=== PATIENT | female | born 1965 | race Caucasian/White ===

== ENCOUNTER 2019-09-28 10:45 | Emergency (ER) | payer OTHER, SELFPAY ==
[2019-09-28 11:03] VITALS: BP 125/69; PULSE 87; RESP 20; TEMP 37.5; O2SAT 98
--- NOTE | 2019-09-28 11:28 | ED.URI ---
HPI - URI/Sore Throat General Chief Complaint: Upper Respiratory Infection Stated Complaint: cough/running nose Time Seen by Provider: 09/28/19 11:29 Source: patient and RN notes reviewed Mode of arrival: ambulatory Limitations: no limitations History of Present Illness HPI Narrative: Pt is a 54 y/o female who is a non-smoker/non-drinker that presents to the with c/o a cough that started 2 days ago. She reports wheezing, sinus drainage, congestion, and a subjective fever. Pt denies any recent foreign or domestic travel. Pt has been using her inhaler at home. 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 MD elicited complaint: cough Onset (ago): day(s) (2) Context: sick contacts Associated symptoms: fever (subjective), nasal congestion and other (sinus drainage, wheezing) Related Data Allergies Allergy/AdvReac Type Severity Reaction Status Date / Time prednisone Allergy Unknown Hyperactive Verified 09/28/19 11:02 tramadol Allergy Unknown chest pain Verified 09/28/19 11:02 Review of Systems Review of Systems: Narrative: General/Constitutional: No weight loss. Reports subjective fever Eyes: N0: Redness,discharge Ears/Nose/Throat: No: Epistaxis,ear discharge. Reports sinus drainage, congestion. Respiratory: Denies: Hemoptysis. Reports cough and wheezing Gastrointestinal: No Vomiting, Bleeding-rectal PMFSH Past Medical History Medical History Asthma Thomas's thyroiditis Hyperlipidemia Prediabetes Sleep apnea Surgical History Surgical History (Updated 09/28/19 @ 11:58 by Roc Palencia) No significant past surgical history Social History Social History Smoking status: Never smoker Smoking end date: 07/15/02 Alcohol intake: current Comments At time of signature, agree with nursing past medical, surgical, social and family history. There is no relevant family history pertinent to the presenting complaint Exam Narrative: Exam Narrative: General: Obese/ Well nourished EYE: PERRLA, Conjunctiva clear Ears: Auditory canal normal, TM normal Nose: Rhinorrhea, Mucousal erythema Mouth/Throat: MM moist, Uvula midline, Pharyngeal erythema Neck: Supple, No adenopathy Respiratory: No respiratory distress, Breath sounds equal, Clear to auscultatio Cardiovascular: RRR, No JVD Musculoskeletal: Non tender, Normal strength Skin: Warm, Dry Neurological: A&O x3, CN II-XII intact Psychiatric: Normal mood, Normal affect Course Vital Signs Vital signs: Vital Signs Temperature 99.5 F 09/28/19 11:03 Pulse Rate 87 09/28/19 11:03 Respiratory Rate 20 09/28/19 11:03 Blood Pressure 125/69 09/28/19 11:03 Pulse Oximetry 98 09/28/19 11:03 Temperature 99.5 F 09/28/19 11:03 Pulse Rate 87 09/28/19 11:03 Respiratory Rate 20 09/28/19 11:03 Blood Pressure 125/69 09/28/19 11:03 Pulse Oximetry 98 09/28/19 11:03 MDM - URI/Sore Throat Lab Data Labs: Influenza A Screen Positive Reference Range: Negative Influenza B Screen Negative Reference Range: Negative Discharge Plan Discharge Clinical Impression: Influenza A Patient Disposition: Home, Self-Care Condition: Stable Instructions: Influenza (ED) Prescriptions: New benzonatate [Tessalon Perles] 100 mg capsule 100 mg PO TID Qty: 20 RF: 1 codeine-guaifenesin 10-100 mg/5 mL liquid 7.5 ml PO Q6H PRN (Reason: cough) Qty: 118 RF: 0 oseltamivir [Tamiflu] 75 mg capsule 75 mg PO Q12H 5 Days Qty: 10 RF: 0 No Action meloxicam 7.5 mg tablet 7.5 mg PO .q12hr PRN (Reason: pain) Qty: 180 RF: 0 Interventions: Discharge Disposition Last Done: 09/28/19 11:54 Follow-up/Referrals: Lucrecia Jarrett DO [Primary Care Provider] - Stand Alone Forms: Work/School Release IP Discharge Date/Time: 09/28/19 11:50
== END 2019-09-28 11:50 | disposition home or self-care (01) ==
PROVIDERS: Emergency Provider Emergency Medicine; PCP Family Medicine
DX: J10.1 Influenza due to other identified influenza virus with other respiratory manifestations (principal); J45.909 Unspecified asthma, uncomplicated; E06.3 Autoimmune thyroiditis; E78.5 Hyperlipidemia, unspecified; G47.30 Sleep apnea, unspecified; R73.03 Prediabetes
CPT/HCPCS: 87804; 99213; G0463

== ENCOUNTER 2020-04-23 07:05 | Outpatient (CLI) | payer OTHER, SELFPAY ==
[2020-04-23 08:02] LABS: Basophils Absolute Auto 0.1 K/mm3 (0.0-0.1); Basophils Percent Auto 0.6 % (0.2-1.2); Eosinophils Absolute Auto 0.5 K/mm3 (0-0.3); Hematocrit 39.6 % (37.0-47.0); Hemoglobin 12.9 g/dL (12.0-15.0); Immature Granulocyte Absolute 0.05 K/mm3 (0.00-0.031); Immature Granulocyte Percent A 0.6 % (0-0.5); Lymphocytes Absolute Auto 2.63 K/mm3 (0.9-3.2); Lymphocytes Percent Auto 29.9 % (18.3-44.2); Mean Corpuscular HGB Conc 32.6 g/dl (32-36); Mean Corpuscular Hemoglobin 28.5 pg (26-34); Mean Corpuscular Volume 87.4 fl (80-100); Mean Platelet Volume 11.1 fl (7.4-10.4); Monocytes Absolute Auto 0.4 K/mm3 (0.1-0.6); Monocytes Percent Auto 4.9 % (2.6-8.5); Neutrophils Absolute Auto 5.1 K/mm3 (1.3-6.7); Platelet Count Result 265 k/mm3 (150-375); Red Blood Count 4.53 M/mm3 (4.2-5.4); Red Cell Distribution Width 13.5 % (11.5-14.5); White Blood Count 8.8 K/mm3 (4.5-10.0)
[2020-04-23 08:21] LABS: Alanine Aminotransferase 22 U/L (4-35); Albumin Level 4.1 g/dL (3.5-5.1); Alkaline Phosphatase 84 U/L (38-126); Anion Gap 7 mmol/L (8-16); Aspartate Amino Transferase 25 U/L (14-36); Bilirubin,Total 0.2 mg/dL (0.2-1.3); Blood Urea Nitrogen 15 mg/dL (7-17); Calcium 9.4 mg/dL (8.4-10.2); Carbon Dioxide 30 mmol/L (22-30); Chloride 105 mmol/L (98-107); Cholesterol 203 mg/dL (0-200); Estimated Glomerular Filt Rate > 60; Glucose 97 mg/dL (65-105); HDL Direct 42 mg/dL; Potassium 4.4 mmol/L (3.4-5.0); Sodium 142 mmol/L (137-145); Triglycerides 132 mg/dL (<150)
[2020-04-23 08:32] LABS: LDL Cholesterol Direct 132 mg/dL
[2020-04-23 11:18] LABS: Free T4 Free Thyroxine 0.63 ng/mL (0.78-2.19)
== END 2020-04-23 07:06 | disposition home or self-care (01) ==
PROVIDERS: PCP Family Medicine; Visit Provider Family Medicine
DX: R73.9 Hyperglycemia, unspecified (principal); E03.9 Hypothyroidism, unspecified; Z13.0 Encounter for screening for diseases of the blood and blood-forming organs and certain disorders involving the immune mechanism; Z13.220 Encounter for screening for lipoid disorders
CPT/HCPCS: 36415; 80053; 80061; 84439; 84443; 85025

== ENCOUNTER 2020-07-25 15:10 | Emergency (ER) | payer OTHER, SELFPAY ==
--- NOTE | 2020-07-25 15:38 | ED.URI ---
HPI - URI/Sore Throat General Chief Complaint: Upper Respiratory Infection Stated Complaint: bertrand/lost of taste Time Seen by Provider: 07/25/20 15:39 Source: patient and RN notes reviewed Mode of arrival: ambulatory Limitations: no limitations History of Present Illness HPI Narrative: 54-year-old female presents with concern for loss of sense of taste and smell. Reports 8 days ago she began having a migraine headache and then had upper respiratory symptoms such as nasal congestion, rhinorrhea. Reports yesterday she noticed she had lost her sense of taste and smell. Denies any mkcg-knd-ghvskhk medications, denies trouble breathing, cough, chills, sweats. MD elicited complaint: other (Suspected Covid) Related Data Home Medications Medication Instructions Recorded Confirmed No Home Medications 07/25/20 07/25/20 Allergies Allergy/AdvReac Type Severity Reaction Status Date / Time prednisone Allergy Unknown Hyperactive Verified 07/25/20 15:46 tramadol Allergy Unknown chest pain Verified 07/25/20 15:46 Review of Systems Review of Systems: Narrative: CONSTITUTIONAL: Denies malaise, chills, sweats, or fever. EYES: Denies visual changes, redness, or discharge. ENT: Reports rhinorrhea, congestion. Denies sinus pain, otalgia and sore throat. CARDIOVASCULAR: Denies chest pain, palpitations, or edema. RESPIRATORY: Reports no cough. Denies dyspnea. GASTROINTESTINAL: Denies abdominal pain, nausea, vomiting, diarrhea SKIN: Denies rash or itching. MUSCULOSKELETAL: Denies myalgia. NEUROLOGIC: Reports headache. All systems reviewed & are unremarkable except as noted in HPI and below PMFSH Past Medical History Medical History Asthma Thomas's thyroiditis Hyperlipidemia Prediabetes Sleep apnea Surgical History Surgical History delivery delivered 1989 H/O oral surgery 1984 wisdom teeth 2008 gum graph H/O: hysterectomy 2012 No significant past surgical history Family History Family History Grandparent Asthma Family history of liver disease Family history of Alzheimer's disease Family history of diabetes mellitus in first degree relative Father Cerebrovascular accident Family history of diabetes mellitus in first degree relative Mother Family history of diabetes mellitus in first degree relative Other Depression Diabetes mellitus Family history of alcoholism Family history of arthritis Family history of hearing loss Family history of kidney disease Family history of osteoporosis Social History Social History Smoking status: Never smoker Second hand tobacco smoke exposure: No Smoking end date: 07/15/02 Alcohol intake: current Substance use: never Substance use type: does not use Gender identity (if verbalized by the patient): Female Spiritual care concerns: No Agree to blood products: Yes Comments At time of signature, agree with nursing past medical, surgical, social and family history. There is no relevant family history pertinent to the presenting complaint Exam Narrative: Exam Narrative: GENERAL: Well-appearing, well-nourished, and in no acute distress. HEAD: Normocephalic EYES: PERRLA, conjunctivae clear ENT: Nares clear. Mucous membranes moist. NECK: Supple. No lymphadenopathy CHEST: Clear to auscultation, breath sounds equal. No wheezing, rhonchi, rales, or stridor. No respiratory distress, speaks in full sentences. HEART: Regular rate and rhythm. No murmur heard. SKIN: Warm, dry, no rash. NEURO: Alert and oriented x3. PSYCH: Normal mood and affect Course Course Emergency Course: Patient is aware of diagnosis, understands and agrees to treatment plan. Anticipatory guidance given. Patient agrees to follow-up as directed and is aw
[2020-07-25 16:02] VITALS: BP 137/85; PULSE 87; RESP 18; TEMP 37.9; O2SAT 100
== END 2020-07-25 16:20 | disposition home or self-care (01) ==
PROVIDERS: Emergency Provider Nurse Practitioner; PCP Family Medicine
DX: U07.1 COVID-19 (principal); J45.909 Unspecified asthma, uncomplicated; E06.3 Autoimmune thyroiditis; E78.5 Hyperlipidemia, unspecified; G47.30 Sleep apnea, unspecified; R73.03 Prediabetes
CPT/HCPCS: 87426; 99213; C9803; G0463

== ENCOUNTER 2020-09-12 01:28 | Day surgery (SDC) | payer OTHER, SELFPAY ==
[2020-08-30 15:17] VITALS: BMI 39.2
[2020-09-12 08:24] VITALS: BP 135/90; PULSE 69; RESP 24; TEMP 36.4; O2SAT 100; BMI 38.9
[2020-09-12] MEDS: LACTATED RINGERS 1,000 ML 150 ML IV CONT (08:40)
--- NOTE | 2020-09-12 09:18 | WPDANESEPPF ---
Anes - Initial Pre Proc Eval Procedure: Operation Date: 09/12/20 09:30 Proposed Procedures p Screening Colonoscopy - Mustapha Williamson MD Date/Time: 09/12/20 09:18 Surgeon: Mustapha Williamson MD Pre Op Diagnosis: Neoplasm Screening Patient Data Age: 54 Gender: F Height: 5 ft Weight: 90.5 kg Last Vital Signs Temp 97.6 F 09/12/20 08:24 Pulse 69 09/12/20 08:24 Resp 24 H 09/12/20 08:24 BP 135/90 09/12/20 08:24 Pulse Ox 100 09/12/20 08:24 Allergies Allergy/AdvReac Type Severity Reaction Status Date / Time prednisone Allergy Intermediate Hyperactive Verified 09/12/20 08:23 tramadol Allergy Intermediate chest pain Verified 09/12/20 08:23 Home Medications Medication Instructions Recorded Confirmed Type sodium,potassium,mag sulfates See Rx Instructions .ROUTE 08/17/20 Rx [Suprep Bowel Prep Kit] .COMPLEX #1 ml acetaminophen 1,000 mg PO BID 08/30/20 09/12/20 History albuterol sulfate [ProAir HFA] 2 puff INHALATION QID PRN 08/30/20 08/30/20 History calcium carbonate-vitamin D3 1 cap PO HS 08/30/20 09/12/20 History [Calcium 600 + D(3)] fluticasone furoate 1 spray INTRANASAL PRN PRN 08/30/20 08/30/20 History loratadine 10 mg PO DAILY 08/30/20 09/12/20 History hcvhtpar-pbh-tjew-FA-lutein 1 tablet PO DAILY 08/30/20 09/12/20 History [Multivitamin Women 50 Plus] Patient hx anesthesia problems: none Family hx anesthesia problems: none PMFSH Past Medical History Medical History Asthma Hyperlipidemia Morbid obesity Prediabetes Sleep apnea Surgical History Surgical History delivery delivered 1989 H/O oral surgery 1984 wisdom teeth 2008 gum graph H/O: hysterectomy 2012 No significant past surgical history Family History Family History Grandparent Asthma Family history of liver disease Family history of Alzheimer's disease Family history of diabetes mellitus in first degree relative Father Cerebrovascular accident Family history of diabetes mellitus in first degree relative Mother Family history of diabetes mellitus in first degree relative Other Depression Diabetes mellitus Family history of alcoholism Family history of arthritis Family history of hearing loss Family history of kidney disease Family history of osteoporosis Social History Social History Smoking status: Never smoker Second hand tobacco smoke exposure: No Smoking end date: 07/15/02 Alcohol intake: current Substance use: never Substance use type: does not use Living arrangements: with family Gender identity (if verbalized by the patient): Female Spiritual care concerns: No Agree to blood products: Yes Anes - Eval Final PreProcedure Day of Procedure 09/12/20 09:18 Patient weight: morbidly obese Heart: regular rate and rhythm Lungs: clear to auscultation Airway: Mallampati scale class II Neurological: alert and oriented Last oral intake: >/= 8 hours ASA classification: III Emergent: no Anesthetic plan: proceed Anesthesia type and monitoring: general GIVS and standard monitoring Informed Consent: The patient's anesthetic plan and its attendant risks and benefits were discussed with the patient/family/POA. Questions were solicited and answers provided to the satisfaction of the patient/family/POA.
--- NOTE | 2020-09-12 09:40 | PM.HPGS ---
History of Present Illness History of Present Illness Consent: Risks, benefits, and alternatives have been discussed and questions answered. Patient agrees to proceed with procedure. Chief complaint: Neoplasm Screening Narrative: Josie English is a 54 year old female here for first screening colonoscopy Review of Systems Constitutional: Constitutional: Denies headache(s) and Denies weakness Eyes: Eyes: Denies blurry vision ENT: Reports Normal hearing present, Denies headache(s) and Denies neck pain Cardiovascular: Cardiovascular: Denies chest pain and Denies dyspnea Respiratory: Respiratory: Denies dyspnea Gastrointestinal: Gastrointestinal: Reports no additional gastrointestinal complaints Genitourinary: Genitourinary: Denies dysuria Musculoskeletal: Musculoskeletal: Denies neck pain Integumentary/Breasts: Skin/Breast: Denies dry skin Neurologic: Reports Normal hearing present, Denies headache(s) and Denies weakness Psychiatric: Psychiatric: Denies anxiety Endocrine: Endocrine: Denies change in body appearance Hematologic/Lymphatic: Hematologic/Lymphatic: Denies easy bleeding Allergic/Immunologic: Allergic/Immunologic: Denies urticaria PMFSH Past Medical History Medical History Asthma Hyperlipidemia Morbid obesity Prediabetes Sleep apnea Surgical History Surgical History delivery delivered 1989 H/O oral surgery 1984 wisdom teeth 2008 gum graph H/O: hysterectomy 2012 No significant past surgical history Family History Family History Grandparent Asthma Family history of liver disease Family history of Alzheimer's disease Family history of diabetes mellitus in first degree relative Father Cerebrovascular accident Family history of diabetes mellitus in first degree relative Mother Family history of diabetes mellitus in first degree relative Other Depression Diabetes mellitus Family history of alcoholism Family history of arthritis Family history of hearing loss Family history of kidney disease Family history of osteoporosis Social History Social History Smoking status: Never smoker Second hand tobacco smoke exposure: No Smoking end date: 07/15/02 Alcohol intake: current Substance use: never Substance use type: does not use Living arrangements: with family Gender identity (if verbalized by the patient): Female Spiritual care concerns: No Agree to blood products: Yes Meds Home Medications and Allergies Home Medications Medication Instructions Recorded Confirmed Type sodium,potassium,mag sulfates See Rx Instructions .ROUTE 08/17/20 Rx [Suprep Bowel Prep Kit] .COMPLEX #1 ml acetaminophen 1,000 mg PO BID 08/30/20 09/12/20 History albuterol sulfate [ProAir HFA] 2 puff INHALATION QID PRN 08/30/20 08/30/20 History calcium carbonate-vitamin D3 1 cap PO HS 08/30/20 09/12/20 History [Calcium 600 + D(3)] fluticasone furoate 1 spray INTRANASAL PRN PRN 08/30/20 08/30/20 History loratadine 10 mg PO DAILY 08/30/20 09/12/20 History rbgkkdrf-idf-qlti-FA-lutein 1 tablet PO DAILY 08/30/20 09/12/20 History [Multivitamin Women 50 Plus] Allergies Allergy/AdvReac Type Severity Reaction Status Date / Time prednisone Allergy Intermediate Hyperactive Verified 09/12/20 08:23 tramadol Allergy Intermediate chest pain Verified 09/12/20 08:23 Vital Signs Vital Signs - 24 hr 09/12/20 08:24 Temperature 97.6 F Pulse Rate 69 Respiratory Rate 24 H Blood Pressure 135/90 Pulse Oximetry 100 Exam Const: General: comfortable and no acute distress HENMT: General nose exam: Normal nares present Eyes: General: appearance normal, both eyes and all related structures Neck: Neck: no JVD Resp: Auscultation: clear to auscultation bilatera
[2020-09-12 10:04] VITALS: BP 118/82; PULSE 79; RESP 22; O2SAT 100
[2020-09-12 10:14] VITALS: BP 118/82; PULSE 66; RESP 19; O2SAT 99
[2020-09-12 10:24] VITALS: BP 134/82; PULSE 71; RESP 23; O2SAT 100
== END 2020-09-12 10:50 | disposition home or self-care (01) ==
PROVIDERS: PCP Family Medicine; Visit Provider Internal Medicine Gastroenterology
PROC: 0DJD8ZZ Inspection of Lower Intestinal Tract, Via Natural or Artificial Opening Endoscopic (ICD-10-PCS; CPT 45378; principal; 2020-09-12 09:30)
DX: Z12.11 Encounter for screening for malignant neoplasm of colon (principal); J45.909 Unspecified asthma, uncomplicated; E78.5 Hyperlipidemia, unspecified; R73.03 Prediabetes; G47.30 Sleep apnea, unspecified; E66.01 Morbid (severe) obesity due to excess calories; Z68.39 Body mass index [BMI] 39.0-39.9, adult
CPT/HCPCS: 45378; J2001; J2704; J7120

== ENCOUNTER 2020-12-26 08:49 | Outpatient (CLI) | payer OTHER, SELFPAY ==
[2020-12-26 09:07] LABS: Basophils Absolute Auto 0.1 K/mm3 (0.0-0.1); Basophils Percent Auto 0.7 % (0.2-1.2); Eosinophils Absolute Auto 0.4 K/mm3 (0-0.3); Eosinophils Percent Auto 4.6 % (0-4.4); Hematocrit 41.6 % (37.0-47.0); Immature Granulocyte Absolute 0.03 K/mm3 (0.00-0.031); Immature Granulocyte Percent A 0.4 % (0-0.5); Lymphocytes Absolute Auto 2.39 K/mm3 (0.9-3.2); Lymphocytes Percent Auto 29.7 % (18.3-44.2); Mean Corpuscular HGB Conc 31.3 g/dl (32-36); Mean Corpuscular Hemoglobin 28.1 pg (26-34); Mean Corpuscular Volume 89.8 fl (80-100); Mean Platelet Volume 10.4 fl (7.4-10.4); Monocytes Absolute Auto 0.5 K/mm3 (0.1-0.6); Monocytes Percent Auto 5.7 % (2.6-8.5); Neutrophils Absolute Auto 4.7 K/mm3 (1.3-6.7); Neutrophils Percent Auto 58.9 % (45.5-73.1); Platelet Count Result 259 k/mm3 (150-375); Red Blood Count 4.63 M/mm3 (4.2-5.4); Red Cell Distribution Width 13.7 % (11.5-14.5)
[2020-12-26 09:18] LABS: Anion Gap 8 mmol/L (8-16); Blood Urea Nitrogen 18 mg/dL (7-17); Calcium 9.6 mg/dL (8.4-10.2); Carbon Dioxide 26 mmol/L (22-30); Chloride 107 mmol/L (98-107); Cholesterol 234 mg/dL (0-200); Estimated Glomerular Filt Rate > 60; Glucose 99 mg/dL (65-105); HDL Direct 51 mg/dL; Sodium 141 mmol/L (137-145); Triglycerides 131 mg/dL (<150)
[2020-12-26 09:23] LABS: Hemoglobin A1C 5.7 % (<5.7)
[2020-12-26 09:29] LABS: LDL Cholesterol Direct 130 mg/dL
[2020-12-26 09:57] LABS: Free T4 Free Thyroxine 0.64 ng/mL (0.78-2.19)
== END 2020-12-26 08:50 | disposition home or self-care (01) ==
PROVIDERS: PCP Family Medicine; Visit Provider Nurse Practitioner Family
DX: E66.01 Morbid (severe) obesity due to excess calories (principal); R73.03 Prediabetes; E78.5 Hyperlipidemia, unspecified; R79.89 Other specified abnormal findings of blood chemistry
CPT/HCPCS: 36415; 80048; 80061; 83036; 84439; 84443; 85025

== ENCOUNTER → 2021-01-11 16:44 | Outpatient (CLI) | payer OTHER, SELFPAY ==
--- NOTE | ~2021-01-11 | MM_ITS ---
EXAMINATION: MM screening [facility] w ramirez HISTORY: Screening TECHNIQUE: Craniocaudal and mediolateral oblique 3-D tomosynthesis images were obtained and synthetic 2-D images were generated. CAD analysis was submitted and interpreted. COMPARISON: No prior mammogram is available for comparison at this institution. BREAST PARENCHYMAL COMPOSITION: There are scattered areas of fibroglandular density. FINDINGS: There is no evidence of suspicious mass, calcification, or architectural distortion to sugg est malignancy in either breast. There has been no suspicious interval change. IMPRESSION: 1. No mammographic evidence of malignancy. 2. Recommend routine screening mammography in one year. BI-RADS Category 1: Negative Reviewed, dictated and finalized at location A.
== END ==
PROVIDERS: PCP Family Medicine; Visit Provider Nurse Practitioner Family
DX: Z12.31 Encounter for screening mammogram for malignant neoplasm of breast (principal)
CPT/HCPCS: 77063; 77067

== ENCOUNTER 2021-03-11 08:26 | Outpatient (CLI) | payer OTHER, SELFPAY ==
[2021-03-11 09:58] LABS: Free T4 Free Thyroxine 0.64 ng/mL (0.78-2.19)
== END 2021-03-11 08:27 | disposition home or self-care (01) ==
PROVIDERS: PCP Family Medicine; Visit Provider Nurse Practitioner Family
DX: R79.89 Other specified abnormal findings of blood chemistry (principal)
CPT/HCPCS: 36415; 84439; 84443

== ENCOUNTER 2021-05-13 07:57 | Outpatient (CLI) | payer OTHER, SELFPAY ==
[2021-05-13 08:46] LABS: T4 Thyroxine 7.64 ug/dL (5.53-11.0)
[2021-05-13 08:59] LABS: Total Triiodothyronine (T3) 1.53 NG/ML (0.97-1.69)
[2021-05-13 10:06] LABS: Free T4 Free Thyroxine 0.76 ng/mL (0.78-2.19)
[2021-05-17 05:28] LABS: Triiodothyronine T3 Free 2.9 pg/mL (2.3-4.2)
[2021-05-18 04:41] LABS: Thyroid Peroxidase Antibodies 15 IU/mL (<9)
[2021-05-18 14:39] LABS: Thyroid Stimulating Immunoglob <89 % baseline (<140)
== END 2021-05-13 07:58 | disposition home or self-care (01) ==
LOC: ANHLAB 07:59
PROVIDERS: PCP Family Medicine; Visit Provider Nurse Practitioner Family
DX: R79.89 Other specified abnormal findings of blood chemistry (principal)
CPT/HCPCS: 36415; 84436; 84439; 84443; 84445; 84480; 84481; 86376

== ENCOUNTER 2021-07-10 13:36 | Outpatient (CLI) | payer OTHER, SELFPAY ==
--- NOTE | ~2021-07-10 | US_ITS ---
EXAMINATION: US thyroid EXAM DATE: 07/10/2021 14:27 INDICATION: R79.89 - Other specified abnormal findings of blood chemi... TECHNIQUE: Multiple grayscale and Doppler images of the thyroid were obtained (by a technologist who performed the scan) and subsequently reviewed. Individual nodules and recommendations may be reporte d in accordance with TI-RADS system as designated by the 2017 ACR White Paper TI-RADS committee. The re is no prior study for comparison. FINDINGS: The right thyroid lobe measures 2.8 x 1.6 x 1.9 cm, the left measuring 2.9 x 1.6 x 1.7 cm. Mildly het erogeneous thyroid parenchyma. There is a left thyroid lobe nodule measuring 1.2 x 0.9 x 1.2 cm, solid (2 points), slightly hypoecho ic (2 points), wider than tall, smooth well defined margin, without echogenic foci, category TR3 for this nodule. IMPRESSION: Left thyroid lobe 1.2 cm nodule; consider one-year follow-up ultrasound exam. Reviewed, dictated and finalized at location B. [employer] IMPRESSION: Left thyroid lobe 1.2 cm nodule; consider one-year follow-up ultras ound exam.
== END 2021-07-10 13:37 | disposition home or self-care (01) ==
LOC: ANHIMG 13:39
PROVIDERS: PCP Family Medicine; Visit Provider Nurse Practitioner Family
DX: R79.89 Other specified abnormal findings of blood chemistry (principal)
CPT/HCPCS: 76536

== ENCOUNTER 2021-11-16 16:36 | Outpatient (CLI) | payer OTHER, SELFPAY ==
--- NOTE | ~2021-11-16 | MR_ITS ---
EXAMINATION: MR pituitary wo/w con DATE: 11/16/2021 18:30 INDICATION: Pituitary adenoma. TECHNIQUE: Magnetic resonance imaging (MRI) of the brain and brainstem was performed without and with 18 mL MultiHance intravenous contrast. COMPARISON: None. FINDINGS: The pituitary is normal in size with height of 6 mm and concave superior margin. The infund ibulum is at midline. There is a focus of increased T2-weighted signal intensity in the left parietal white matter, which is normal as an isolated finding. There is no intracranial hemorrhage, acute inf arction, or abnormal intracranial mass lesion. The ventricles are normal in size. The orbits are norm al. There is mucosal thickening in the paranasal sinuses. The mastoid air cells are normal. IMPRESSION: 1. Normal brain. Reviewed, dictated and finalized at location A. IMPRESSION: 1. Normal brain.
[2021-11-16 17:49] LABS: Estimated Glomerular Filt Rate > 60
== END 2021-11-16 16:37 | disposition home or self-care (01) ==
LOC: ANHIMG 16:39
PROVIDERS: PCP Family Medicine; Visit Provider Internal Medicine Endocrinology, Diabetes & Metabolism
DX: E03.8 Other specified hypothyroidism (principal)
CPT/HCPCS: 70553; A9577

== ENCOUNTER 2021-12-02 06:59 | Outpatient (CLI) | payer OTHER, SELFPAY ==
[2021-12-02 08:01] LABS: T4 Thyroxine 7.23 ug/dL (5.53-11.0)
[2021-12-02 08:09] LABS: Hemoglobin A1C 5.7 % (<5.7)
[2021-12-02 08:15] LABS: Total Triiodothyronine (T3) 1.46 NG/ML (0.97-1.69)
[2021-12-02 08:16] LABS: Cortisol Baseline 7.37 ug/dL
[2021-12-02 08:24] LABS: Free T4 Free Thyroxine 0.74 ng/mL (0.78-2.19)
[2021-12-05 11:59] LABS: FSH 105.4 mIU/mL (***); LH 39.9 mIU/mL (***); Prolactin 5.7 ng/mL (***); Triiodothyronine T3 Free 3.6 pg/mL (2.3-4.2)
[2021-12-06 20:29] LABS: Adrenocorticotropic Hormone <5 pg/mL (6-50)
[2021-12-08 23:36] LABS: Estradiol, Ultrasensitive 8 pg/mL
== END 2021-12-02 07:00 | disposition home or self-care (01) ==
LOC: ANHLAB 07:01
PROVIDERS: PCP Family Medicine; Visit Provider Internal Medicine Endocrinology, Diabetes & Metabolism
DX: E03.8 Other specified hypothyroidism (principal); E04.9 Nontoxic goiter, unspecified; R73.03 Prediabetes
CPT/HCPCS: 36415; 82024; 82533; 82670; 83001; 83002; 83036; 84146; 84436; 84439; 84443; 84480; 84481

== ENCOUNTER 2022-01-05 07:11 | Outpatient (RCR) | payer OTHER, SELFPAY | END 2022-04-05 23:59 | disposition home or self-care (01) | LOC: ANHVASCINF 07:11 | PROVIDERS: PCP Family Medicine; Visit Provider Internal Medicine Endocrinology, Diabetes & Metabolism | DX: E03.8 Other specified hypothyroidism (principal) | CPT/HCPCS: 36415; 82533; 84443; 96372; J0834 ==

== ENCOUNTER 2022-02-17 07:02 | Outpatient (CLI) | payer OTHER, SELFPAY ==
[2022-02-17 09:33] LABS: Free T4 Free Thyroxine 0.98 ng/mL (0.78-2.19)
== END 2022-02-17 07:03 | disposition home or self-care (01) ==
LOC: ANHLAB 07:04
PROVIDERS: PCP Family Medicine; Visit Provider Internal Medicine Endocrinology, Diabetes & Metabolism
DX: E03.8 Other specified hypothyroidism (principal)
CPT/HCPCS: 36415; 84439; 84443

== ENCOUNTER 2022-04-14 07:18 | Outpatient (CLI) | payer OTHER, SELFPAY ==
[2022-04-14 08:31] LABS: Hemoglobin A1C 5.8 % (<5.7)
[2022-04-14 09:01] LABS: Free T4 Free Thyroxine 1.17 ng/mL (0.78-2.19)
== END 2022-04-14 07:19 | disposition home or self-care (01) ==
LOC: ANHLAB 07:21
PROVIDERS: PCP Family Medicine; Visit Provider Internal Medicine Endocrinology, Diabetes & Metabolism
DX: R73.03 Prediabetes (principal); E03.8 Other specified hypothyroidism
CPT/HCPCS: 36415; 83036; 84439; 84443